=== PATIENT | female | born 1955 | race African-American/Black ===

== ENCOUNTER 2023-02-04 10:09 | Outpatient (AMB) | payer MEDICARE, SELFPAY ==
--- NOTE | 2023-02-04 10:18 | MHC.OFFVIS ---
Intake Vital Signs 02/04/23 10:22 Height 5 ft 3 in Weight 156 lb BMI 27.6 BP 110/62 Blood Pressure Location Lt brachial Position Standing Pulse 71 Pulse Source Pulse Oximeter Pulse Oximetry (%) 97 Oxygen Delivery Method Room Air Intake Visit Reasons: dyspnea Intake Note: pt is here for shortness of breath/uncontrolled asthma, transferring in from [facility] Allergies No Known Allergies Allergy (Verified 02/04/23 10:25) HPI HPI Comments History of Present Illness Details The patient is here for pulmonary evaluation. The patient is a 67 year woman with a known history of asthma. Apparently for the last 2 years her asthma has become significantly worse. She response typically to prednisone. She was referred to ENT for chronic sinusitis and was provided therapy. She did have allergy testing there is well. She was also referred to an clinical program director. Additional blood work was requested for more than a year ago. She felt to have uncontrolled asthma and felt that she could not start allergy shots again since she has uncontrolled symptoms. She does state that she did allergy shots most of her childhood 1 she was very young to about 19 years of age. She did not really see any significant improvement. She would want to do allergy shot this time. Will try to maximize her respiratory therapy. The patient may be a good candidate for biologic therapy. On examination she does have wheezing rhonchi. She has a hard time with her coughing her chest congestion. She has a hard time expectorating. She has evidence of asthmatic bronchitis. Will go ahead and start her on budesonide nebs. She should also using Acapella valve and will provide her 1 with a local [employer] company. [facility] Medical History (Updated 02/04/23 @ 13:04 by Estiven Silvestre MD) Asthma Chronic bronchitis Social History (Updated 02/04/23 @ 10:33 by MARISSA Roman) Patient Tobacco Use Status: Never used Tobacco Review of Systems Const Denies fatigue and Denies fever(s) Eyes Denies exophthalmos ENT Reports nasal congestion, Reports nasal discharge and Reports post nasal drip Card Denies chest pain and Reports dyspnea on exertion Resp Reports chest congestion, Reports cough, Reports dyspnea on exertion and Reports wheezing GI Reports no additional complaints Musc Reports no additional complaints Skin/Breast Denies rash Neuro Reports no additional complaints Endo Denies fatigue Joshua/Lymph Denies easy bruising Aller/Immun Reports wheezing Physical Exam Vital Signs: Last Vital Signs Pulse 71 02/04/23 10:22 BP 110/62 02/04/23 10:22 Pulse Ox 97 02/04/23 10:22 Oxygen Delivery Method Room Air 02/04/23 10:22 BMI result Body Mass Index 27.6 Const General: comfortable HEENT Head: Yes normocephalic Neck Neck: Yes supple Chest Chest palpation & inspection: normal inspection of the chest Resp Effort & Inspection: normal respiratory effort and prolonged expiratory phase Auscultation: rhonchi, wheezes and breath sounds absent Cardio Rate: regular rate Rhythm: regular rhythm Heart sounds: S1 normal heart sound present and S2 normal heart sound present GI Palpation (GI): Soft to palpation Skin General skin exam: no rashes or lesions noted Extrem General: Yes no clubbing, cyanosis or edema Assessment & Plan Assessment & Plan (1) Chronic bronchitis: Code(s): J42 - Unspecified chronic bronchitis (2) Asthma: Code(s): J45.909 - Unspecified asthma, uncomplicated Qualifiers: Asthma severity: severe Asthma persistence: persistent Asthma complication type: uncomplicated Qualified Code(s): J45.50 - Severe persistent asthma, uncomplicated Plan Add budesonide BID Albuterol BID CPT with acapella valve bloodwork/allergy testing PFTs CXR consider biologic therapy F/U 4-8 weeks Orders: Orders Complete Blood Count Auto Diff Today J42 - Unspecified chronic bronchitis, J45.909 - Unspecified asthma, uncomplicated Erythrocyte Sedimentation Rate Today J42 - Unspecified chronic bronchitis, J45.909 - Unspecified asthma, uncomplicated Immunoglobulin E Today J42 - Unspecified chronic bronchitis, J45.909 - Unspecified asthma, uncomplicated Immunoglobulin G Subclasses Today J42 - Unspecified chronic bronchitis, J45.909 - Unspecified asthma, uncomplicated Immunoglobulins,IgG IgA IgM Today J42 - Unspecified chronic bronchitis, J45.909 - Unspecified asthma, uncomplicated PFT pulmonary function test Today J42 - Unspecified chronic bronchitis, J45.909 - Unspecified asthma, uncomplicated XR chest 2V Today J42 - Unspecified chronic bronchitis, J45.909 - Unspecified asthma, uncomplicated Sputum Cult + Gram stain Today J42 - Unspecified chronic bronchitis Coding Level of Care Code New Pt Level 4 (30138) Diagnoses Chronic bronchitis J42 Asthma J45.50 Asthma severity: severe Asthma persistence: persistent Asthma complication type: uncomplicated Time Spent (min) 40
[2023-02-04 10:22] VITALS: BP 110/62; PULSE 71; O2SAT 97; BMI 27.6
== END 2023-02-04 11:02 | disposition home or self-care (01) ==
PROVIDERS: PCP Internal Medicine; Visit Provider Hospitalist
DX: J42 Unspecified chronic bronchitis (principal); J45.50 Severe persistent asthma, uncomplicated
CPT/HCPCS: 99204

== ENCOUNTER → 2023-02-04 10:09 | Outpatient (BNVA) | payer MEDICARE, SELFPAY | PROVIDERS: Visit Provider Hospitalist | DX: J45.50 Severe persistent asthma, uncomplicated (principal); J42 Unspecified chronic bronchitis | CPT/HCPCS: 99202 ==

== ENCOUNTER 2023-02-17 10:13 | Outpatient (REF) | payer MEDICARE, SELFPAY ==
--- NOTE | 2023-02-17 11:19 | PFT_ITS ---
INDICATION: Asthma. SPIROMETRY: FEV1 to FVC 77% with an FEV1 of 2.02 L, which is 128% predicted and FVC of 2.64 L, which is 130% predicted. No significant response to bronchodilators noted. Maximum voluntary ventilation 79% predicted. LUNG VOLUMES: Total lung capacity 94% predicted with an expiratory reserve volume of 25% predicted. DIFFUSION CAPACITY: DLCO 111% predicted. COMPARISONS: None. INTERPRETATION: No obstructive nor restrictive ventilatory defects identified. No significant response to bronchodilators noted. There is a mild decrease in maximum voluntary ventilation secondary to likely deconditioning. Lung volumes are within normal limits except for decrease in the expiratory reserve volume. Diffusion capacity is within normal limits. Clinical correlation warranted. Estiven Silvestre MD MR/MODL / [id number]
== END 2023-02-17 10:14 | disposition home or self-care (01) ==
LOC: HO.RESP 10:13
PROVIDERS: PCP Internal Medicine; Visit Provider Hospitalist
DX: J45.909 Unspecified asthma, uncomplicated (principal); J42 Unspecified chronic bronchitis
CPT/HCPCS: 94010; 94727; 94729

== ENCOUNTER → 2023-02-17 11:19 | Outpatient (BNV) | payer MEDICARE, SELFPAY | PROVIDERS: PCP Internal Medicine; Visit Provider Hospitalist | DX: J45.909 Unspecified asthma, uncomplicated (principal) | CPT/HCPCS: 94060; 94727; 94729 ==

== ENCOUNTER 2023-04-18 10:25 | Outpatient (AMB) | payer MEDICARE, SELFPAY ==
--- NOTE | 2023-04-18 10:31 | MHC.OFFVIS ---
Intake Vital Signs 04/18/23 10:35 Height 5 ft 3 in Weight 154 lb BMI 27.3 BP 120/70 Blood Pressure Location Rt brachial Position Sitting Pulse 62 Pulse Source Pulse Oximeter Pulse Oximetry (%) 99 Oxygen Delivery Method Room Air Intake Visit Reasons: dyspnea Casino Change Attendant Required: No Allergies No Known Allergies Allergy (Verified 04/18/23 10:37) HPI HPI Comments History of Present Illness Details The patient is a 67 year woman with a known history of asthma. Apparently for the last 2 years her asthma has become significantly worse. She response typically to prednisone. She was referred to ENT for chronic sinusitis and was provided therapy. She did have allergy testing there is well. She was also referred to an health care marketing manager. Additional blood work was requested for more than a year ago. She felt to have uncontrolled asthma and felt that she could not start allergy shots again since she has uncontrolled symptoms. She does state that she did allergy shots most of her childhood 1 she was very young to about 19 years of age. She did not really see any significant improvement. She would want to do allergy shot this time. Will try to maximize her respiratory therapy. The patient may be a good candidate for biologic therapy. On examination she does have wheezing rhonchi. She has a hard time with her coughing her chest congestion. She has a hard time expectorating. She has evidence of asthmatic bronchitis. Will go ahead and start her on budesonide nebs. She should also using Acapella valve and will provide her 1 with a local [employer]. 04/18/2023 the patient is here for pulmonary follow-up visit. Overall the patient has been doing well. She did undergo the pulmonary function studies which were very reassuring, with no obstructive nor restrictive ventilatory defects. Her chest x-ray only demonstrated some minimal atelectasis at the base. And the patient also had blood work which was all reassuring. The patient is currently being evaluated for biologic therapy with her health care marketing manager. We did talk about chest physical therapy regarding her chest congestion. Using the Acapella valve for chest PT will be important and mucus clearance. The patient is very sensitive to many medications and she is very concerned about potential side effects. [facility] Medical History (Updated 04/20/23 @ 22:26 by Estiven Silvestre MD) Chronic bronchitis Asthma Social History (Updated 02/04/23 @ 10:33 by MARISSA Roman) Patient Tobacco Use Status: Never used Tobacco Review of Systems Const Denies fatigue and Denies fever(s) Eyes Denies exophthalmos ENT Reports nasal congestion, Reports nasal discharge and Reports post nasal drip Card Denies chest pain and Reports dyspnea on exertion Resp Reports chest congestion, Reports cough, Reports dyspnea on exertion and Reports wheezing GI Reports no additional complaints Musc Reports no additional complaints Skin/Breast Denies rash Neuro Reports no additional complaints Endo Denies fatigue Joshua/Lymph Denies easy bruising Aller/Immun Reports wheezing Physical Exam Vital Signs: Last Vital Signs Pulse 62 04/18/23 10:35 BP 120/70 04/18/23 10:35 Pulse Ox 99 04/18/23 10:35 Oxygen Delivery Method Room Air 04/18/23 10:35 BMI result Body Mass Index 27.3 Const General: comfortable HEENT Head: Yes normocephalic Neck Neck: Yes supple Chest Chest palpation & inspection: normal inspection of the chest Resp Effort & Inspection: normal respiratory effort and prolonged expiratory phase Auscultation: wheezes Cardio Rate: regular rate Rhythm: regular rhythm Heart sounds: S1 normal heart sound present and S2 normal heart sound present GI Palpation (GI): Soft to palpation Skin General skin exam: no rashes or lesions noted Extrem General: Yes no clubbing, cyanosis or edema Assessment & Plan Assessment & Plan (1) Chronic bronchitis: Code(s): J42 - Unspecified chronic bronchitis Qualifiers: Chronic bronchitis type: simple Qualified Code(s): J41.0 - Simple chronic bronchitis (2) Asthma: Code(s): J45.909 - Unspecified asthma, uncomplicated Qualifiers: Asthma complication type: uncomplicated Asthma persistence: persistent Asthma severity: severe Qualified Code(s): J45.50 - Severe persistent asthma, uncomplicated Plan budesonide BID Albuterol BID CPT with acapella valve consider biologic therapy with her health care marketing manager continue singulaor F/U 6 months Coding Level of Care Code Est Pt Level 4 (13858) Diagnoses Simple chronic bronchitis J41.0 Chronic bronchitis type: simple Severe persistent asthma without complication J45.50 Asthma complication type: uncomplicated Asthma persistence: persistent Asthma severity: severe Time Spent (min) 18
[2023-04-18 10:35] VITALS: BP 120/70; PULSE 62; O2SAT 99; BMI 27.3
== END 2023-04-18 11:05 | disposition home or self-care (01) ==
PROVIDERS: PCP Internal Medicine; Visit Provider Hospitalist
DX: J41.0 Simple chronic bronchitis (principal); J45.50 Severe persistent asthma, uncomplicated
CPT/HCPCS: 99214

== ENCOUNTER → 2023-04-18 10:25 | Outpatient (BNVA) | payer MEDICARE, SELFPAY | PROVIDERS: PCP Internal Medicine; Visit Provider Hospitalist | DX: J45.50 Severe persistent asthma, uncomplicated (principal); J41.0 Simple chronic bronchitis | CPT/HCPCS: 99212 ==

== ENCOUNTER 2023-10-15 11:01 | Outpatient (AMB) | payer MEDICARE, SELFPAY ==
[2023-10-15 11:11] VITALS: PULSE 64; O2SAT 98; BMI 26.4
--- NOTE | 2023-10-15 11:11 | A.OFFVIS_ITS ---
Intake Vital Signs 10/15/23 11:11 Height 5 ft 3 in Weight 149 lb BMI 26.4 Pulse 64 Pulse Source Pulse Oximeter Pulse Oximetry (%) 98 Oxygen Delivery Method Room Air Intake Visit Reasons: dyspnea Ross Lift Operator Required: No Allergies No Known Allergies Allergy (Verified 10/15/23 11:12) HPI HPI Comments History of Present Illness Details The patient is a 67 year woman with a known history of asthma. Apparently for the last 2 years her asthma has become significantly worse. She response typically to prednisone. She was referred to ENT for chronic sinusitis and was provided therapy. She did have allergy testing there is well. She was also referred to an ssn/ssbn assistant navigator. Additional blood work was requested for more than a year ago. She felt to have uncontrolled asthma and felt that she could not start allergy shots again since she has uncontrolled symptoms. She does state that she did allergy shots most of her childhood 1 she was very young to about 19 years of age. She did not really see any significant improvement. She would want to do allergy shot this time. Will try to maximize her respiratory therapy. The patient may be a good candidate for biologic therapy. On examination she does have wheezing rhonchi. She has a hard time with her coughing her chest congestion. She has a hard time expectorating. She has evidence of asthmatic bronchitis. Will go ahead and start her on budesonide nebs. She should also using Acapella valve and will provide her 1 with a local [employer]. 04/18/2023 the patient is here for pulmonary follow-up visit. Overall the patient has been doing well. She did undergo the pulmonary function studies which were very reassuring, with no obstructive nor restrictive ventilatory defects. Her chest x-ray only demonstrated some minimal atelectasis at the base. And the patient also had blood work which was all reassuring. The patient is currently being evaluated for biologic therapy with her ssn/ssbn assistant navigator. We did talk about chest physical therapy regarding her chest congestion. Using the Acapella valve for chest PT will be important and mucus clearance. The patient is very sensitive to many medications and she is very concerned about potential side effects. 10/15/2023 the patient is here for a pulm onary follow-up visit. Overall the patient is doing well. Recently she was exposed to a viral syndrome and she became sick with bronchitis. The fortunately part is that she did not need any prednisone although the patient needed a brief course of antibiotics. Her symptoms are now better. She did start Fasenra which has been helping significantly. She has been on the Fasenra now for several months. She is tolerating the injection without any adverse effects. Is been working well and therefore she was able to wean off some of the nebulized therapy. However, after getting the viral syndrome in the bronchitis she has been using her nebulizers more regularly. Her chest x-ray is reassuring at least the last 1 that she had. That was from January 2023. She may have had 1 when she had bronchitis but I do not have access to that 1. At this point will continue with current respiratory regimen the patient will follow-up in the fall. [facility] Medical History (Updated 10/15/23 @ 11:28 by Estiven Silvestre MD) Asthma-COPD overlap syndrome Chronic bronchitis Asthma Social History (Updated 02/04/23 @ 10:33 by Marily Myers Cheo) Patient Tobacco Use Status: Never used Tobacco Review of Systems Const Denies fatigue and Denies fever(s) Eyes Denies exophthalmos ENT Reports nasal congestion, Reports nasal discharge and Reports post nasal drip Card Denies chest pain and Reports dyspnea on exertion Resp Reports chest congestion, Reports cough, Reports dyspnea on exertion and Denies wheezing GI Reports no additional complaints Musc Reports no additional complaints Skin/Breast Denies rash Neuro Reports no additional complaints Endo Denies fatigue Joshua/Lymph Denies easy bruising Aller/Immun Denies wheezing Physical Exam Vital Signs: Last Vital Signs Pulse 64 10/15/23 11:11 Pulse Ox 98 10/15/23 11:11 Oxygen Delivery Method Room Air 10/15/23 11:11 BMI result Body Mass Index 26.4 Const General: comfortable HEENT Head: Yes normocephalic Neck Neck: Yes supple Chest Chest palpation & inspection: normal inspection of the chest Resp Effort & Inspection: normal respiratory effort and No prolonged expiratory phase Auscultation: no wheezes and diminished lung sounds Cardio Rate: regular rate Rhythm: regular rhythm Heart sounds: S1 normal heart sound present and S2 normal heart sound present GI Palpation (GI): Soft to palpation Skin General skin exam: no rashes or lesions noted Extrem General: Yes no clubbing, cyanosis or edema Assessment & Plan Assessment & Plan (1) Chronic bronchitis: Code(s): J42 - Unspecified chronic bronchitis Qualifiers: Chronic bronchitis type: simple Qualified Code(s): J41.0 - Simple chronic bronchitis (2) Asthma: Code(s): J45.909 - Unspecified asthma, uncomplicated Qualifiers: Asthma complication type: uncomplicated Asthma persistence: persistent Asthma severity: severe Qualified Code(s): J45.50 - Severe persistent asthma, uncomplicated (3) Asthma-COPD overlap syndrome: Code(s): J44.89 - Other specified chronic obstructive pulmonary disease Plan budesonide BID via nebulizer Albuterol BID nebulizer CPT with acapella valve continue Fasenra continue singulair F/U 6 months Medications: New budesonide 0.5 mg (2 mL) inhalation BID 30 days 120 mL 11RF J44.89 - Other specified chronic obstructive pulmonary disease Coding Level of Care Code Est Pt Level 4 (28691) Diagnoses Simple chronic bronchitis J41.0 Chronic bronchitis type: simple Severe persistent asthma without complication J45.50 Asthma complication type: uncomplicated Asthma persistence: persistent Asthma severity: severe Asthma-COPD overlap syndrome J44.89 Time Spent (min) 17
== END 2023-10-15 11:37 | disposition home or self-care (01) ==
PROVIDERS: PCP Internal Medicine; Visit Provider Hospitalist
DX: J41.0 Simple chronic bronchitis (principal); J45.50 Severe persistent asthma, uncomplicated
CPT/HCPCS: 99214

== ENCOUNTER → 2023-10-15 11:01 | Outpatient (BNVA) | payer MEDICARE, SELFPAY | PROVIDERS: PCP Internal Medicine; Visit Provider Hospitalist | DX: J45.50 Severe persistent asthma, uncomplicated (principal); J41.0 Simple chronic bronchitis; Z79.899 Other long term (current) drug therapy | CPT/HCPCS: 99212 ==

== ENCOUNTER 2024-06-08 10:20 | Outpatient (AMB) | payer MEDICARE, SELFPAY ==
[2024-06-08 10:29] VITALS: BP 126/62; PULSE 72; O2SAT 98; BMI 26.0
--- NOTE | 2024-06-08 10:29 | A.OFFVIS_ITS ---
Vital Signs 06/08/24 10:29 Height 5 ft 3 in Weight 146 lb 9.718 oz BMI 26.0 BP 126/62 Blood Pressure Location Rt brachial Position Sitting Pulse 72 Pulse Source Pulse Oximeter Pulse Oximetry (%) 98 Intake Visit Reasons: Dyspnea Trucker Hand Required: No Branch Employment Coordinator: Branch Employment Coordinator offered & declined Accompanied by: Self / Same As Patient Allergies No Known Allergies Allergy (Verified 06/08/24 10:34) Medication List - Last Reconciled 06/08/24 by Mari Casas LPN albuterol sulfate 90 mcg/actuation (ProAir HFA) 2 puffs inhalation Q4-6H PRN albuterol sulfate 2.5 mg inhalation TID PRN amlodipine 5 mg PO DAILY budesonide 0.5 mg (2 mL) inhalation BID 30 days citalopram (Celexa) 40 mg PO DAILY diclofenac potassium 50 mg PO BID epinephrine (Auvi-Q) 0.3 mg IM Q4H PRN fluticasone furoate-vilanterol 100-25 mcg/dose (Breo Ellipta) 1 inh inhalation DAILY hyoscyamine sulfate (Levsin) 0.125 mg PO Q6H lorazepam 1 mg PO TID PRN montelukast (Singulair) 10 mg PO BEDTIME multivitamin (Multiple Vitamins tablet) 1 tab PO DAILY nebulizers As directed pregabalin 75 mg PO BID tramadol 50 mg PO Q6H PRN valacyclovir (Valtrex) 500 mg PO DAILY HPI Comments Details: The patient is a 68 year woman with a known history of asthma. Apparently for the last 2 years her asthma has become significantly worse. She response typically to prednisone. She was referred to ENT for chronic sinusitis and was provided therapy. She did have allergy testing there is well. She was also referred to an biochemistry technician. Additional blood work was requested for more than a year ago. She felt to have uncontrolled asthma and felt that she could not start allergy shots again since she has uncontrolled symptoms. She does state that she did allergy shots most of her childhood 1 she was very young to about 19 years of age. She did not really see any significant improvement. She would want to do allergy shot this time. Will try to maximize her respiratory therapy. The patient may be a good candidate for biologic therapy. On examination she does have wheezing rhonchi. She has a hard time with her coughing her chest congestion. She has a hard time expectorating. She has evidence of asthmatic bronchitis. Will go ahead and start her on budesonide nebs. She should also using Acapella valve and will provide her 1 with a local [employer] company. 04/18/2023 the patient is here for pulmonary follow-up visit. Overall the patient has been doing well. She did undergo the pulmonary function studies which were very reassuring, with no obstructive nor restrictive ventilatory defects. Her chest x-ray only demonstrated some minimal atelectasis at the base. And the patient also had blood work which was all reassuring. The patient is currently being evaluated for biologic therapy with her biochemistry technician. We did talk about chest physical therapy regarding her chest congestion. Using the Acapella valve for chest PT will be important and mucus clearance. The patient is very sensitive to many medications and she is very concerned about potential side effects. 10/15/2023 the patient is here for a pulmonary follow-up visit. Overall the patient is doing well. Recently she was exposed to a viral syndrome and she became sick with bronchitis. The fortunately part is that she did not need any prednisone although the patient needed a brief course of antibiotics. Her symptoms are now better. She did start Fasenra which has been helping significantly. She has been on the Fasenra now for several months. She is tolerating the injection without any adverse effects. Is been working well and therefore she was able to wean off some of the nebulized therapy. However, after getting the viral syndrome in the bronchitis she has been using her nebulizers more regularly. Her chest x-ray is reassuring at least the last 1 that she had. That was from January 2023. She may have had 1 when she had bronchitis but I do not have access to that 1. At this point will continue with current respiratory regimen the patient will follow-up in the fall of 2023. 06/08/2024 the patient is here for a pulmonary follow-up visit. Overall she is doing very well. The patient his responded very well to the Fasenra injections. She has not had any significant flare-ups. Although more recently she has had some wheezing specially because of the fall and the winter when her asthma tends to be worse. She previously had budesonide although is not covered anymore with the insurance. Will send her QVAR. She can also use her nebulizer and also the albuterol puffer to use as needed. No imaging studies to review. We again looked at her PFTs which are actually excellent. Was on a copy to her biochemistry technician. At this point the patient will follow-up in a year's time if she develops any worsening respiratory symptoms she will call for an earlier chest. [facility] Medical History (Updated 10/15/23 @ 11:28 by Estiven Silvestre MD) Asthma-COPD overlap syndrome Chronic bronchitis Asthma Social History (Updated 02/04/23 @ 10:33 by Marily Myers PENDING SALE TO [facility]) Patient Tobacco Use Status: Never used Tobacco Review of Systems Const Denies fatigue and Denies fever(s) Eyes Denies exophthalmos ENT Reports nasal congestion, Reports nasal discharge and Reports post nasal drip Card Denies chest pain and Denies dyspnea on exertion Resp Denies chest congestion, Reports cough, Denies dyspnea on exertion and Reports wheezing GI Reports no additional complaints Musc Reports no additional complaints Skin/Breast Denies rash Neuro Reports no additional complaints Endo Denies fatigue Joshua/Lymph Denies easy bruising Aller/Immun Reports wheezing Physical Exam Vital Signs: Last Vital Signs Pulse 72 06/08/24 10:29 BP 126/62 06/08/24 10:29 Pulse Ox 98 06/08/24 10:29 BMI result Body Mass Index 26.0 Const General: comfortable HEENT Head: Yes normocephalic Neck Neck: Yes supple Chest Chest palpation & inspection: normal inspection of the chest Resp Effort & Inspection: normal respiratory effort and No prolonged expiratory phase Auscultation: no wheezes and diminished lung sounds Cardio Rate: regular rate Rhythm: regular rhythm Heart sounds: S1 normal heart sound present and S2 normal heart sound present GI Palpation (GI): Soft to palpation Skin General skin exam: no rashes or lesions noted Extrem General: Yes no clubbing, cyanosis or edema Results Reviewed Results Reviewed: [address] [address] Pulmonary Function Report Signed Patient: Sourav Escoto MR#: [id number] : 1955 Acct:[id number] Age/Sex: 67 / F ADM Date: 02/17/23 Loc: HO.RESP Attending Dr: Estiven Silvestre MD Ordering Physician: Estiven Silvestre MD Date of Service: 02/17/23 Procedure(s): PFT pulmonary function test Accession Number(s): [id number] cc: sEtiven Silvestre MD~ INDICATION: Asthma. SPIROMETRY: FEV1 to FVC 77% with an FEV1 of 2.02 L, which is 128% predicted and FVC of 2.64 L, which is 130% predicted. No significant response to bronchodilators noted. Maximum voluntary ventilation 79% predicted. LUNG VOLUMES: Total lung capacity 94% predicted with an expiratory reserve volume of 25% predicted. DIFFUSION CAPACITY: DLCO 111% predicted. COMPARISONS: None. INTERPRETATION: No obstructive nor restrictive ventilatory defects identified. No significant response to bronchodilators noted. There is a mild decrease in maximum voluntary ventilation secondary to likely deconditioning. Lung volumes are within normal limits except for decrease in the expiratory reserve volume. Diffusion capacity is within normal limits. Clinical correlation warranted. Estiven Silvestre MD MR/MODL / [id number] Dictated By: Estiven Silvestre MD Signed By: <Electronically signed by Estiven Silvestre MD> 02/18/23 1312 DD/ 0810 TD/TT: 02/18/23 1052 Loan Approver: Assessment & Plan Assessment & Plan (1) Chronic bronchitis: Code(s): J42 - Unspecified chronic bronchitis Category: Medical Qualifiers: Chronic bronchitis type: simple Qualified Code(s): J41.0 - Simple chron ic bronchitis (2) Asthma: Code(s): J45.909 - Unspecified asthma, uncomplicated Category: Medical Qualifiers: Asthma complication type: uncomplicated Asthma persistence: persistent Asthma severity: severe Qualified Code(s): J45.50 - Severe persistent asthma, uncomplicated Plan stop budesonide BID via nebulizer start QVAR Albuterol BID nebulizer CPT with acapella valve continue Fasenra continue singulair F/U 12 months Medications: New beclomethasone dipropionate 80 mcg/actuation (Qvar RediHaler) 1 inh inhalation BID 30 days 10.6 grams 11RF Changed From albuterol sulfate 2.5 mg inhalation TID PRN To albuterol sulfate 2.5 mg (3 mL) inhalation BID 30 days PRN 180 mL 11RF shortness of breath or wheezing From albuterol sulfate 90 mcg/actuation (ProAir HFA) 2 puffs inhalation Q4-6H PRN To albuterol sulfate 90 mcg/actuation 2 puffs inhalation Q4-6H PRN 8.5 grams 11RF shortness of breath or wheezing Coding Level of Care Code Est Pt Level 4 (12233) Diagnoses Simple chronic bronchitis J41.0 Chronic bronchitis type: simple Severe persistent asthma without complication J45.50 Asthma complication type: uncomplicated Asthma persistence: persistent Asthma severity: severe Time Spent (min) 16
== END 2024-06-08 10:53 | disposition home or self-care (01) ==
PROVIDERS: PCP Internal Medicine; Visit Provider Hospitalist
DX: J41.0 Simple chronic bronchitis (principal); J45.50 Severe persistent asthma, uncomplicated
CPT/HCPCS: 99214

== ENCOUNTER → 2024-06-08 10:20 | Outpatient (BNVA) | payer MEDICARE, SELFPAY | PROVIDERS: PCP Internal Medicine; Visit Provider Hospitalist | DX: J45.50 Severe persistent asthma, uncomplicated (principal); J41.0 Simple chronic bronchitis | CPT/HCPCS: 99212 ==

== ENCOUNTER 2024-11-10 14:56 | Outpatient (REF) | payer MEDICARE, SELFPAY ==
--- NOTE | 2024-11-10 14:57 | PFT_ITS ---
Spirometry [] Lung Volumes [] Diffusion Capacity [] Methacholine Challenge [] Flow Volume Loops [] MVV [] MIP/MEP(Max inspiratory pressure/Max expiratory pressure) [] 6 Minute Walk Test [] ABG [] Interpretation [] MTDD
[2024-11-10 15:42] VITALS: PULSE 70; O2SAT 99
--- OUTSIDE RECORDS SUMMARY | 2024-11-10 17:47 | XMS_ITS | Clinical Summary ---
Author Organization [facility] [address] [facility] Address [address] [place] [address] Phone Care Team Providers Care Calculus Tutor Name Role Phone Debbie Cisneros MD Primary Care Prov ider Allergies Active Allergy Reactions Criticality Noted Date Comments Morrice Other 04/02/2021 Coconut Other 05/27/2023 Milk Diarrhea 04/02/2021 Diarrhea within minutes of ingesting lactaid products Rash in corners of mouth Other Wheezing,Runny nose 12/14/2010 Seasonal Allergies Peanut Other 10/26/2020 Medications albuterol 2.5 mg /3 mL (0.083 %) nebulizer solution Take 1 Vial by nebulization 4 times daily. use qid as needed 4 Active albuterol HFA (PROAIR HFA ; PROVENTIL HFA ; VENTOLIN HFA) 90 mcg/actuation inhaler Take 2 Puffs by mouth every 6 hours as needed for Cough or Wheezing for up to 30 days. 2 Active multivitamin (MULTI-DAY ORAL) 1 TAB PO QD Active cholecalcifero l, vitamin D3, 25 mcg (1,000 unit) tablet,chewabl e Take by mouth daily. Active benralizumab (Fasenra Pen) 30 mg/mL auto-injector injection Inject into the skin every 30 days. Active budesonide (PULMICORT) 0.5 mg/2 mL nebulizer solution INHALE ONE VIAL 0.5MG/2ML) VIA NEBULIZER TWICE DAILY. 4 Active diclofenac sodium (VOLTAREN XR) 100 mg 24 Hour tablet TAKE 1 TABLET BY MOUTH DAILY 4 Active EPINEPHrine (Auvi-Q) 0.3 mg/0.3 mL injection Inject 1 Device as directed as needed (anaphylaxis). Use as directed 1 Active latanoprost (XALATAN) 0.005 % ophthalmic solution INSTILL ONE DROP INTO BOTH EYES EVERY NIGHT DIRECTED 3 Active LORazepam (ATIVAN) 0.5 mg tablet Take 1 tablet by mouth every 6 hours as needed for Anxiety. 1 Active miconazole (MICOTIN) 2 % powder Apply to affected areas liberally or 4 times daily 1 Active nystatin-triam cinolone (MYCOLOG II) cream APPLY A SMALL AMOUNT TO AFFECTED AREA TWICE A DAY 9 Active valACYclovir (VALTREX) 500 mg tablet Take 2 tablets (1,000 mg total) by mouth 1 (one) time each day. 4 Active amLODIPine (NORVASC) 5 mg tablet Take 1 tablet (5 mg total) by mouth 1 (one) time each day. 90 tablet 1 5 Active citalopram (CeleXA) 40 mg tablet Take 1 tablet (40 mg total) by mouth 1 (one) time each day. 90 tablet 1 5 Active pregabalin (LYRICA) 75 mg capsule Take 1 capsule (75 mg total) by mouth 2 (two) times a day. Max Daily Amount: 150 mg 180 each 1 5 025 Active montelukast (SINGULAIR) 10 mg tablet Take 1 tablet (10 mg total) by mouth at bedtime. 90 tablet 1 5 Active traMADoL (ULTRAM) 50 mg tablet Take 1 tablet (50 mg total) by mouth 2 (two) times a day. Max Daily Amount: 100 mg 56 tablet 5 Active pregabalin (LYRICA) 75 mg capsule Take 1 Capsule by mouth 2 times daily. 4 025 Discontin ued(Reord er) montelukast (SINGULAIR) 10 mg tablet Take 1 tablet (10 mg total) by mouth at bedtime. 90 tablet 1 5 025 Discontin ued(Reord er) traMADoL (ULTRAM) 50 mg tablet Take 1 tablet (50 mg total) by mouth 2 (two) times a day. Max Daily Amount: 100 mg 56 tablet 5 025 Discontin ued(Reord er) Active Problems Problem Noted Date Diagnosed Date Sacroiliac joint pain 08/28/2023 Overview (05/27/2024): Last Assessment & Plan: Ms. Escoto has persistent right SI joint pain that extends to her groin and anterior thigh. She is currently in physical therapy which does help with though she feels sore immediately afterwards. She notes that there using a roller over the joint does help at therapy. She has a difficult time sleeping on her sides at night particularly on the right and has recurrent pain whenever she is pulled forward in a jerking motion by her dog while walking. She is currently taking diclofenac SR 100 mg every morning which helps but seems to wear off by evening. On exam, she is acutely tender over the right SI joint, mildly so over the left. Seated SLR is positive on the right at 90 degrees and crossed from the left and 90 degrees provoking pain at the right SI joint, not in the lumbar spine. Strength is 5/5, sensation light touch intact, gait is steady. We discussed treatment options for chronic sacroiliitis. She does not wish to have any further surgery if possible and would not want to consider an SI fuse which I did demonstrate on the spine model. She is doing well with physical therapy and a asked that they teach her home exercise program including how to bowl on a roller and she will restart her swimming next week. She can continue the diclofenac in the mornings but may add the 50 mg tablet in the evening. I have also given her prescription for an SI belt. Glaucoma suspect 05/27/2023 Overview (05/27/2024): [facility] eye care. Dr. Alonso. On latanoprost Stage III macular hole following with Dr. Howard annual. Nuclear sclerosis OU. 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 Dry eye syndrome OU Assessment & Plan (10/20/2024 12:14 PM EDT): Abnormal EKG 08/14/2022 Overview (05/27/2024): Last Assessment & Plan: T wave inversion is slightly more prominent in precordial leads compared to previous EKG. This could be nonspecific. But we will arrange ischemia work-up. Shortness of breath 08/14/2022 Overview (05/27/2024): Last Assessment & Plan: Probably caused by her persistent asthma. She does not have a typical risk factor for coronary artery disease beside of age. However, her EKG showed more profound T wave inversion. Would like to arrange echocardiogram and stress test. We will check BNP and repeat lipid panel. 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 Escoto is here for second postop visit since a right L3-4 MIS discectomy on 12/11/2023. She has had resolution of the numbness and reports now very rare tingling or pain from preop. She does have persistent symptoms from right sacroiliitis which will be discussed separately. She has been hesitant to twist, turn or bend since surgery but doing these maneuvers does not provoke pain in the lumbar region. On exam, her incision is well-healed without tenderness, erythema or swelling. Strength is full, sensation light touch intact, gait is steady. She had questions regarding the stability of her spine given the surgery adjacent to her prior fusion. No further surgery is considered at this time. I encouraged good body mechanics and continuing a home exercise program. She is also scheduled to restart swimming next week which I think will help in the long run. Assessment & Plan (10/20/2024 12:14 PM EDT): Chronic nonintractable headache 01/06/2019 Recurrent major depressive d isorder, in partial remission ([facility] V24) 12/17/2018 Assessment & Plan (10/20/2024 12:14 PM EDT): Orders: CBC and differential; Future Comprehensive metabolic panel; Future Myofascial pain syndrome, cervical 09/21/2018 Brachial neuritis or radiculitis 08/20/2018 Sprain of thoracic region 08/20/2018 Cervical disc disease with myelopathy 06/25/2018 Assessment & Plan (10/20/2024 12:14 PM EDT): Dysplastic nevus 03/23/2014 Overview (05/27/2024): Dysplastic nevus 03/03 right foot (mild - moderate atypia) Lactose intolerance 08/16/2013 Overview (05/27/2024): Reported 07/2013 Per patient Perennial allergic rhinitis 11/26/2010 Hypertension 11/22/2008 Assessment & Plan (10/20/2024 12:14 PM EDT): Angioedema 08/03/2008 Overview (05/27/2024): Cold induced, 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, thoracic region 05/03/2008 Overview (05/27/2024): MRI 04/27 with mild disc bulg T9-10 Fibrocystic breast 02/07/2008 Overview (05/27/2024): Neg mammogram 01/26/08 Undiagnosed cardiac murmurs 11/18/2006 Overview (05/27/2024): Normal echo 11/04/06, EF60-65%, Trace MR Generalized osteoarthrosis of hand 10/01/2006 Overview (05/27/2024): cervical spine, hands IMO update Disorder of bone and cartilage 10/01/2006 Overview (05/27/2024): IMO update Hematuria 08/12/2006 Overview (05/27/2024): IMO update Asthma 02/21/2006 Overview (05/27/2024): seasonal spring/fall, cold triggers Assessment & Plan (10/20/2024 12:14 PM EDT): Vitamin D deficiency 02/21/2006 Assessment & Plan (10/20/2024 12:14 PM EDT): Orders: Vitamin D 25 hydroxy; Future Headache 10/31/2005 Overview (05/27/2024): MRI with cerebral white matter hyperintensities, referred to Neuro, Dr Gillespie, for eval. Normal echo 03/23/08 Nl MRI cervical and thoracic spine 04/27 Encounters Date Type Department Care Team Description 10/20/2024 11:15 AM EDT Office Visit Adult Medicine [address] [address] Ashlee Hooper PA Medicare annual wellness visit, subsequent (Primary Dx); Primary hypertension; Cervical disc disease with myelopathy; Lumbar disc disease with radiculopathy; Moderate persistent asthma without complication; Vitamin D deficiency; Recurrent major depressive disorder, in partial remission (CMS/HCC V24); Herpes zoster without complication; Glaucoma suspect, unspecified laterality; Screening for ischemic heart disease; Overweight from Last 3 Months Immunizations Name Administration Dates Next Due Hepatitis A Pediatric (Havri x; Vaqta) 12mo to less than 19yo 05/09/1997 Hepatitis B (Hyvgnyv-U-Qtasc , Recombivax HB-Adult) 19yo and older 05/02/1997,04/04/1997 Influenza Quadravalent, MDCK , 0.5ml, preservative free (Flucelvax) 6mo and older 04/12/2020 Influenza Quadravalent, MDCK , 0.5ml, with preservative (Flucelvax) 6mo and older 04/30/2017 Influenza trivalent, 0.5mL ( Fluad) 65yo and older 03/30/2024 Influenza trivalent, 0.5mL, preservative free (Fluarix; FluLaval; Fluzone) ages 6mo and older (Afluria) 3 years and older 07/07/2019,05/20/2018,05/20/2016,05/18,03/30/2012,06/06/2010,04/19/2008 ,06/04/1997 Influenza trivalent, with pr eservative (Fluzone; Afluria) 6mo and older 06/20/2021 Meningococcal Polysaccharide 04/25/1997 PPD Test 03/04/2016, 5,02/16/2014,03/01,03/04/2012,01/22/2010,04/04/2009 ,01/06/2008,01/25/2002,03/04/2001,02/18 Pneumococcal conjugate 20 va lent (Prevnar 20, PCV 20) 2mo and older 05/27/2023 Pneumococcal polysaccharide 23 valent (Pneumovax 23) 2yo and older 06/07/2015 Td Tetanus diptheria (Tdvax) 7yo and older 07/22/2003,04/04/1997 Tdap Tetanus diptheria acell ular pertussis (Boostrix; Adacel) 7yo and older 12/19/2017,01/06/2008 Zoster recombinant (Shingrix ) 19yo and older 01/18/2022 Surgical History Surgery Date Site/Laterality Comments COLONOSCOPY 2004 PROCEDURE: HISTORICAL COLONOSCOPY; COMMENT: blood stool, negative, Dr Ragland, 04/07/03 Dr Jean MOLE REMOVAL PROCEDURE: HISTORICAL MOLE (REMOVAL OF) BACK SURGERY 07/06/2019 N/A PROCEDURE: HISTORICAL BACK SURGERY; COMMENT: L4-5 decompression, L4-S1 fusion with segmental pedicle screw fixation, Dr. Horowitz COLONOSCOPY 04/2023 PROCEDURE: HISTORICAL COLONOSCOPY; COMMENT: colitis BACK SURGERY 12/11/2023 PROCEDURE: HISTORICAL BACK SURGERY; COMMENT: right L3-4 MIS discectomy, Dr. Horowitz Medical History Medical History Date Comments Allergic rhinitis, cause unspecified 10/01/2006 DX:Allergic rhinitis, cause unspecified Generalized osteoarthrosis, involving hand 10/01/2006 DX:Generalized osteoarthrosi s, involving hand; COMMENT: cervical spine, hands Hypertension 11/22/2008 DX:Hypertension Family history of cardiovasc ular disease DX:Family history of cardiov ascular disease Glaucoma suspect 05/27/2023 DX:Glaucoma marcelina pect; COMMENT: [facility] eye care. Dr. Alonso. On latanoprost Stage III macular hole following with Dr. Howard annual. Nuclear sclerosis OU. 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 Dry eye syndrome OU Osteopenia DX:Osteopenia History of cold urticaria DX:His tory of cold urticaria Mild intermittent asthma, uncomplicated DX:Mild intermittent asthma, uncomplicated Hx of migraines DX:Hx of migrain es History of colitis 04/2023 DX:History of colitis Family History Medical History Relation Name Comments Coronary artery disease Father Other cancer Maternal Grandmother bladder cancer Coronary artery disease Mother Diabetes Mother Htn, glaucoma, cataract, peripheral vascular disease,myxoma Other: multiple myeloma Sister 1 Relation Name Status Comments Brother 1 Alive htn Brother 2 Alive fatty liver, Father (Age 78) alzheimer' s,htn, Dm, [place], bypass Maternal Grandmother Mother Alive cabg, Sister 1 Sister 2 (Age 59) multiple m yeloma Social History Tobacco Use Types Packs/Day Years Used Date Smoking Tobacco: Never Smokeless Tobacco: Never Tobacco Cessation:Counseling Given: No Alcohol Use Standard Drinks/Week Comments Not Currently 0 (1 standard drink = 0.6 oz pur e alcohol) Housing Instability Answer Date Recorde d Are you worried that in the next 2 months you may not have stable housing? No 10/18/2024 Food Access & Nutrition Answer Date Rec orded Do you have access to a vari ety of food including fruits and vegetables? Yes 10/18/2024 Access to Healthcare Answer Date Record ed Within the last 3 months, ho w many times did you visit the emergency department for your medical care? 0 10/18/2024 Health Literacy Answer Date Recorded How often do you need to hav e someone help you when you read instructions, pamphlets, or other written material from your doctor or pharmacy? Rarely 10/18/2024 Caregiver: How often do you need to have someone help you when you read instructions, pamphlets, or other written material from your doctor or pharmacy? Not on file 10/18/2024 Financial Risk Answer Date Recorded How hard is it for you to pa y for the very basics like food, housing, medical care, and air conditioning / heating? Not very hard 10/18/2024 Transportation Answer Date Recorded Has the lack of transportati on kept you from meetings, work, or from getting things needed for daily living? No 10/18/2024 Has the lack of transportati on kept you from medical appointments or from getting medications? Not on file 10/18/2024 Social Isolation Answer Date Recorded How often do you feel lonely or isolated from th ose around you? Never 10/18/2024 Food Risk Answer Date Recorded Within the past 12 months we worried whether our food would run out before we got money to buy more. Never true 10/18/2024 Within the past 12 months th e food we bought just didn't last and we didn't have money to get more. Never true 10/18/2024 Dependent Care Answer Date Recorded Do you need help finding or paying for care for your loved ones. For example, director of child welfare services or elderly care for an older adult? No 10/18/2024 Education Answer Date Recorded Do you think completing more education or training, like finishing a GED, going to college, or learning a trade, would be helpful for you? N/A 10/18/2024 Employment and Income Answer Date Recor ded During the last four weeks, have you been actively looking for work? No 10/18/2024 Living Situation Answer Date Recorded What is your living situation? 0 10/18/2024 Comments No Sex and Gender Information Value Date Recorded Sex Assigned at Female 11/15/2022 12:07 PM EDT Legal Sex Female 10:17 PM EST Gender Identity Female 11/15/2022 12:07 PM EDT Sexual Orientation Lesbian or Whitaker 11/15/2022 12 :07 PM EDT Obstetrics History Last Filed Vital Signs Vital Sign Reading Time Taken Comments Blood Pressure 112/58 10/20/2024 11:24 AM EDT Pulse 61 10/20/2024 11:24 AM EDT Temperature 36.7 ??C (98 ??F) 10/20/2024 11:24 AM EDT Respiratory Rate - - Oxygen Saturation - - Inhaled Oxygen Concentration - - Weight 64.4 kg (142 lb) 10/20/2024 11:24 AM EDT Height 160 cm (5' 3 ) 10/20/2024 11:24 AM EDT Body Mass Index 25.15 10/20/2024 11:24 AM EDT Plan of Treatment Upcoming Encounters Date Type Department Care Team (Late st Contact Info) Description 04/21/2025 9:30 AM EDT Office Visit Adult Medicine - [facility] [address] [place] [phone] Debbie Cisneros MD [address] [place] [address] Health Maintenance Due Date Last Done Comments Breast Cancer Screening 1955 Hepatitis B Vaccines (3 of 3 - 19+ 3-dose series) 10/02/1997 05/02/1997, 04/04/1997 Zoster Vaccines (2 of 2) 03/15/2022 01/18/2022 Falls Risk Assessment 06/29/2022 COVID-19 Vaccine (9 - Moderna risk ) 10/22/2024 04/23/2024, 05/09/2023, 11/07/2022, Additional history exists Social Influencers of Health Screening 10/18/2025 10/18/2024 Depression Screening 10/20/2025 10/20/2024 Hypertension/CHF/CAD Annual BMP Blood Test 10/20/2025 10/20/2024, 02/18/2022 Medicare Annual Wellness Visit 10/20/2025 10/20/2024 DTaP,Tdap,and Td Vaccines (5 - Td or Tdap) 12/20/2027 12/19/2017, 01/06/2008, 07/22/2003, Additional history exists Cholesterol Screening (Lipid Panel) 10/20/2029 10/20/2024, 02/18/2022 Colorectal Cancer Screening: Colonoscopy 03/18/2033 03/18/2023 Osteoporosis Screening (Bone Density Screening) 04/26/2034 04/26/2024, 04/26/2024 Meningococcal ACWY Vaccine Aged Out 04/25/1997 N o longer eligible based on patient's age to complete this topic Hepatitis A Vaccines Aged Out 05/09/1997 No long er eligible based on patient's age to complete this topic Hepatitis C Screening Completed 06/07/2015 Pneumococcal Vaccine: 50+ Years Completed 05/27/2023, 05/08/2022, 06/07/2015 Influenza Vaccine Completed 03/30/2024, , 04/12/2022, Additional history exists RSV Immunization Adult Patients Completed 04/23/2024 HIB Vaccines Aged Out No longer eligi ble based on patient's age to complete this topic HPV Vaccines Aged Out No longer eligi ble based on patient's age to complete this topic IPV Vaccines Aged Out No longer eligi ble based on patient's age to complete this topic MMR Vaccines Aged Out No longer eligi ble based on patient's age to complete this topic Meningococcal B Vaccine Aged Out No l onger eligible based on patient's age to complete this topic RSV Immunization Patients Under 20 months Aged Out No longer eligible based on patient's age to complete this topic Varicella Vaccines Aged Out No longer eligible based on patient's age to complete this topic Procedures Procedure Name Priority Date/Time Associated Diagnosis Comments ACTIVATED PARTIAL THROMBOPLASTIN TIME Routine 10/29/2024 1:39 PM EDT Bleeding nose PROTHROMBIN TIME WITH INR Routine 10/29/2024 1:39 PM EDT Bleeding nose CBC WITH AUTO DIFFERENTIAL Routine 10/20/2024 12:15 PM EDT Recurrent major depressive disorder, in partial remission ([facility]/HCC V24) VITAMIN D 25 HYDROXY Routine 10/20/2024 12:15 PM EDT Vitamin D deficiency LIPID PANEL WITH REFLEX TO DIRECT LDL Routine 10/20/2024 12:15 PM EDT Screening for ischemic heart disease COMPREHENSIVE METABOLIC PANEL Routine 10/20/2024 12:15 PM EDT Recurrent major depressive disorder, in partial remission (CMS/HCC V24) CBC AND DIFFERENTIAL Routine 10/20/2024 12:15 PM EDT Recurrent major depressive disorder, in partial remission ([facility]/HCC V24) DXA BONE DENSITY STUDY 1+ SITS AXIAL SKEL Routine 04/26/2024 2:11 PM EDT Age-related osteoporosis without current pathological fracture COLONOSCOPY Routine 03/18/2023 HEPATITIS C SCREENING Routine 06/07/2015 from Last 3 Months or Most Recently Relevant to Health Maintenance Results * Activated partial thromboplastin time (10/29/2024 1:39 PM EDT) aPTT 29.0 24.1 - 39.3 sec LAB COAGULATION METHOD 10/29/2024 3:59 PM EDT [facility] Blood Venous blood specimen / Unknown Venipuncture / Unknown 10/29/2024 1:39 PM EDT 10/29/2024 1:39 PM EDT Ashlee LEYVA LAB BLOOD ORDERABLES Final Result Performing Organization Address City/[facility]/ZIP Co de Phone Number [facility] [address] [place] [address], [place] [phone] * Prothrombin time with INR (10/29/2024 1:39 PM EDT) [facility] Protime 11.6 10.6 - 13.9 sec LAB COAGULATION METHOD 10/29/2024 3:59 PM EDT [facility] INR 0.9 LAB COAGULATION METHOD 10/29/2024 3:59 PM EDT [facility] Blood Venous blood specimen / Unknown Venipuncture / Unknown 10/29/2024 1:39 PM EDT 10/29/2024 1:39 PM EDT Ashlee LEYVA LAB BLOOD ORDERABLES Final Result Performing Organization Address City/[facility]/ZIP Co de Phone Number [facility] [address] [place] [address], [place] [phone] * Lipid panel with reflex to direct LDL (10/20/2024 12:15 PM EDT) Cholesterol 165 0 - 200 mg/dL LAB CHEMISTRY METHOD 10/20/2024 8:50 PM EDT [facility] Triglycerides 66 0 - 150 mg/dL LAB CHEMISTRY METHOD 10/20/2024 8:50 PM EDT [facility] HDL 75 >=40 mg/dL LAB CHEMISTRY METHOD 10/20/2024 8:50 PM EDT [facility] LDL Calculated 77 0 - 100 mg/dL LAB CHEMISTRY METHOD 10/20/2024 8:50 PM EDT [facility] VLDL Cholesterol Nima 13.2 mg/dL LAB CHEMISTRY METHOD 10/20/2024 8:50 PM EDT [facility] Non HDL Chol. (LDL+VLDL) 90 <145 mg/dL LAB CHEMISTRY METHOD 10/20/2024 8:50 PM EDT [facility] Chol/HDL Ratio 2.2 0.0 - 4.4 LAB CHEMISTRY METHOD 10/20/2024 8:50 PM EDT [facility] Blood Venous blood specimen / Unknown Venipuncture / Unknown 10/20/2024 12:15 PM EDT 10/20/2024 12:15 PM EDT Ashlee LEYVA LAB BLOOD ORDERABLES Final Result [facility] [address] [place] [address], * (ABNORMAL) CBC auto differential (10/20/2024 12:15 PM EDT) Pathologist [facility] WBC 3.9(L) 4.8 - 10.8 K/[facility] LAB HEMETOLOGY METHOD 10/20/2024 2:12 PM EDT [facility] RBC 4.20 3.80 - 4.80 M/mcL LAB HEMETOLOGY METHOD 10/20/2024 2:12 PM [facility] Hemoglobin 13.2 11.5 - 16.0 g/dL LAB HEMETOLOGY METHOD 10/20/2024 2:12 PM [facility] Hematocrit 41.0 35.0 - 47.0 % LAB HEMETOLOGY METHOD 10/20/2024 2:12 PM [facility] MCV 98.6(H) 79.0 - 98.0 FL LAB HEMETOLOGY METHOD 10/20/2024 2:12 PM [facility] MCH 31.7 27.0 - 32.0 pcg LAB HEMETOLOGY METHOD 10/20/2024 2:12 PM [facility] MCHC 32.2 32.0 - 37.0 g/dL LAB HEMETOLOGY METHOD 10/20/2024 2:12 PM [facility] RDW 13.0 11.0 - 15.0 % LAB HEMETOLOGY METHOD 10/20/2024 2:12 PM [facility] Platelets 316 130 - 400 K/mcL LAB HEMETOLOGY METHOD 10/20/2024 2:12 PM [facility] MPV 9.9 7.0 - 11.0 FL LAB HEMETOLOGY METHOD 10/20/2024 2:12 PM [facility] NRBC 0.0 <1.0 % LAB HEMETOLOGY METHOD 10/20/2024 2:12 PM [facility] NRBC Absolute 0.00 <0.10 K/mcL LAB HEMETOLOGY METHOD 10/20/2024 2:12 PM [facility] Neutrophils Relative 57.6 % LAB HEMETOLOGY METHOD 10/20/2024 2:12 PM [facility] Lymphocytes Relative 32.8 % LAB HEMETOLOGY METHOD 10/20/2024 2:12 PM [facility] Monocytes Relative 9.0 % LAB HEMETOLOGY METHOD 10/20/2024 2:12 PM EDT [facility] Eosinophils Relative 0.0 % LAB HEMETOLOGY METHOD 10/20/2024 2:12 PM EDT [facility] Basophils Relative 0.3 % LAB HEMETOLOGY METHOD 10/20/2024 2:12 PM EDT [facility] Immature Granulocytes Relative 0.3 % LAB HEMETOLOGY METHOD 10/20/2024 2:12 PM EDT [facility] Neutrophils Absolute 2.25 1.50 - 7.00 K/mcL LAB HEMETOLOGY METHOD 10/20/2024 2:12 PM EDT [facility] Lymphocytes Absolute 1.28 1.00 - 5.00 K/mcL LAB HEMETOLOGY METHOD 10/20/2024 2:12 PM EDT [facility] Monocytes Absolute 0.35 0.20 - 1.00 K/mcL LAB HEMETOLOGY METHOD 10/20/2024 2:12 PM EDT [facility] Eosinophils Absolute 0.00 0.00 - 0.50 K/mcL LAB HEMETOLOGY METHOD 10/20/2024 2:12 PM EDT [facility] Basophils Absolute 0.01 0.00 - 0.20 K/mcL LAB HEMETOLOGY METHOD 10/20/2024 2:12 PM EDT [facility] Immature Granulocytes Absolute 0.01 0.00 - 0.03 K/mcL LAB HEMETOLOGY METHOD 10/20/2024 2:12 PM EDT [facility] Blood Venous blood specimen / Unknown Venipuncture / Unknown 10/20/2024 12:15 PM EDT 10/20/2024 12:15 PM EDT us Ashlee LEYVA LAB BLOOD ORDERABLES Final Result [facility] [facility] [address] [place] [address], [place] [phone] * Vitamin D 25 hydroxy (10/20/2024 12:15 PM EDT) [facility] Vit D, 25-Hydroxy 58.1 30.0 - 80.0 ng/mL LAB CHEMISTRY METHOD 10/20/2024 9:53 PM EDT [facility] Blood Venous blood specimen / Unknown Venipuncture / Unknown 10/20/2024 12:15 PM EDT 10/20/2024 12:15 PM EDT us Ashlee LEYVA LAB BLOOD ORDERABLES Final Result [facility] [address] [place] [address], [place] [phone] * Comprehensive metabolic panel (10/20/2024 12:15 PM EDT) [facility] Sodium 143 133 - 145 mmol/L LAB CHEMISTRY METHOD 10/20/2024 8:50 PM EDT [facility] Potassium 4.3 3.5 - 5.5 mmol/L LAB CHEMISTRY METHOD 10/20/2024 8:50 PM [facility] Chloride 108 96 - 110 mmol/L LAB CHEMISTRY METHOD 10/20/2024 8:50 PM [facility] CO2 31 21 - 32 mmol/L LAB CHEMISTRY METHOD 10/20/2024 8:50 PM [facility] Anion Gap 4 3 - 11 LAB CHEMISTRY METHOD 10/20/2024 8:50 PM [facility] Glucose 79 70 - 100 mg/dL LAB CHEMISTRY METHOD 10/20/2024 8:50 PM [facility] BUN 9 5 - 25 mg/dL LAB CHEMISTRY METHOD 10/20/2024 8:50 PM [facility] Creatinine 0.80 0.50 - 1.10 mg/dL LAB CHEMISTRY METHOD 10/20/2024 8:50 PM EDT [facility] eGFR 81 >=60 mL/min/1. 73m2 LAB CHEMISTRY METHOD 10/20/2024 8:50 PM T [facility] Comment:Calculation based on the??Chronic Kidney Disease Epidemiology Collaboration (CKD-EPI) equation refit??without adjustment for race. BUN/Creatinine Ratio 11.3 LAB CHEMISTRY METHOD 10/20/2024 8:50 PM EDT [facility] Calcium 9.2 8.5 - 10.5 mg/dL LAB CHEMISTRY METHOD 10/20/2024 8:50 PM [facility] AST (SGOT) 26 10 - 42 unit/L LAB CHEMISTRY METHOD 10/20/2024 8:50 PM [facility] ALT (SGPT) 31 10 - 60 unit/L LAB CHEMISTRY METHOD 10/20/2024 8:50 PM [facility] Alkaline Phosphatase 107 42 - 121 unit/L LAB CHEMISTRY METHOD 10/20/2024 8:50 PM [facility] Total Protein 7.1 6.0 - 8.0 g/dL LAB CHEMISTRY METHOD 10/20/2024 8:50 PM [facility] Albumin 4.0 3.2 - 5.0 g/dL LAB CHEMISTRY METHOD 10/20/2024 8:50 PM [facility] Total Bilirubin 0.3 0.0 - 1.4 mg/dL LAB CHEMISTRY METHOD 10/20/2024 8:50 PM [facility] Blood Venous blood specimen / Unknown Venipuncture / Unknown 10/20/2024 12:15 PM EDT 10/20/2024 12:15 PM EDT us Ashlee LEYVA LAB BLOOD ORDERABLES Final Result [facility] [address] [place] [address], [place] [phone] * DXA BONE DENSITY STUDY 1+ JI AXIAL SKEL (04/26/2024 2:11 PM EDT) Anatomical Region Laterality Modality Bone Densitometr y 12/23/2023 11:3 7 AM EDT Narrative 04/26/2024 5:34 PM EDT BONE DENSITY SCAN (DEXA): FINDINGS: Lumbar Spine L1-L3, L4 excluded due to spinal fusion hardware T-score is -1.2. ?? (SD relative to 20-29 y/o adult) Z-score is 0.6. ??(SD relative to age matched peers) This is considered osteopenia by WHO criteria. Left Hip T-score is -2.3. Z-score is -0.7. This is considered osteopenia by WHO criteria. Left Forearm T-score is -0.4. Z-score is 1.5. This is considered normal by WHO criteria. Comparison exam(s): 08/24/2015 for the lumbar spine and left hip, no prior left forearm study. 8.6% loss of lumbar spine bone mineral density which is statistically significant at the 95% confidence level. No statistically significant change in left hip bone mineral density.. IMPRESSION: IMPRESSION: ?? Osteopenia by WHO criteria. The [facility] Department of Internal Medicine recommends using National Osteoporosis Foundation (NOF) guidelines in treatment decisions related to osteoporosis. NOF guidelines suggest considering treatment for postmenopausal women and men aged 50 or older presenting with the following: History of hip or vertebral fracture. T-score = -2.5 (DXA) at the femoral neck, total hip, or spine, after appropriate evaluation to exclude secondary causes. Low bone mass (T-score between -1.0 and -2.5 at the femoral neck or spine) AND a 10-year probability of a hip fracture = 3% OR a 10-year probability of a major osteoporosis-related fracture = 20% based on the [place]-adapted WHO algorithm Please note that all treatment decisions require clinical judgment and consideration of individual patient factors, including patient preferences, co-morbidities, previous drug use, risk factors not captured in the FRAX model (e.g., frailty, falls, vitamin D deficiency, increased bone turnover, interval significant decline in bone density) and possible under- or over-estimation of fracture risk by FRAX. Optional alternative screening schedule based on john Herman., [facility] August 08, 2011 for patients with osteopenia (based on hip BMD T-score) is as follows: * ??advanced osteopenia (T scores -2.00 to -2.49), BMD testing every year * ??moderate osteopenia (T scores -1.50 to -1.99), BMD testing every 5 years mild osteopenia or normal BMD (T scores -1.50 and higher), BMD testing every 15 years Procedure Note Darlene George MD - 05/18/2024 BONE DENSITY SCAN (DEXA): FINDINGS: Lumbar Spine L1-L3, L4 excluded due to spinal fusion hardware T-score is -1.2. (SD relative to 20-29 y/o adult) Z-score is 0.6. (SD relative to age matched peers) This is considered osteopenia by WHO criteria. Left Hip T-score is -2.3. Z-score is -0.7. This is considered osteopenia by WHO criteria. Left Forearm T-score is -0.4. Z-score is 1.5. This is considered normal by WHO criteria. Comparison exam(s): 08/24/2015 for the lumbar spine and left hip, no priorleft forearm study. 8.6% loss of lumbar spine bone mineral density which is statisticallysignificant at the 95% confidence level. No statistically significant change in left hip bonemineral density.. IMPRESSION: IMPRESSION: Osteopenia by WHO criteria. The [facility] Department of Internal Medicine recommendsusing National Osteoporosis Foundation (NOF) guidelines in treatment decisions related toosteoporosis. NOF guidelines suggest considering treatment for postmenopausal women and menaged 50 or older presenting with the following: History of hip or vertebral fracture. T-score = -2.5 (DXA) at the femoral neck, total hip, or spine, afterappropriate evaluation to exclude secondary causes. Low bone mass (T-score between -1.0 and -2.5 at the femoral neck or spine)AND a 10-year probability of a hip fracture = 3% OR a 10-year probability of a majorosteoporosis-related fracture = 20% based on the [place]-adapted WHO algorithm Please note that all treatment decisions require clinical judgment andconsideration of individual patient factors, including patient preferences, co- morbidities,previous drug use, risk factors not captured in the FRAX model (e.g., frailty, falls, vitaminD deficiency, increased bone turnover, interval significant decline in bone density) andpossible under- or over-estimation of fracture risk by FRAX. Optional alternative screening schedule based on john Herman., NEJMJanuary 2011 for patients with osteopenia (based on hip BMD T-score) is as follows: * advanced osteopenia (T scores -2.00 to -2.49), BMD testing every year * moderate osteopenia (T scores -1.50 to -1.99), BMD testing every 5years mild osteopenia or normal BMD (T scores -1.50 and higher), BMD testingevery 15 years Debbie Cisneros MD IMG DXA PROCEDURES Final Result * Colonoscopy (03/18/2023) [facility] Colonoscopy No Interpretation, Abstraction Anatomical Region Laterality Modality Other Historical Provider HEALTH MAINTENANCE Final Result * Hepatitis C Screening (06/07/2015) [facility] Hepatitis C Screening Abstracted Historical Provider HEALTH MAINTENANCE Final Result from Last 3 Months or Most Recently Relevant to Health Maintenance Insurance [employer] MEDICARE Advance Directives Documents on File Type Date Recorded Patient Civil Technician Expl anation Health Care Decision (hx) 07/07/2019 AD OZUNA DIRECTIVE Health Care Decision (hx) 07/07/2019 AD OZUNA DIRECTIVE Health Care Decision (hx) 07/07/2019 AD OZUNA DIRECTIVE Health Care Decision (hx) 07/07/2019 AD OZUNA DIRECTIVE Health Care Decision (hx) 07/07/2019 AD OZUNA DIRECTIVE Health Care Decision (hx) 07/07/2019 AD OZUNA DIRECTIVE Health Care Decision (hx) 07/07/2019 AD OZNUA DIRECTIVE Health Care Decision (hx) 07/07/2019 AD OZUNA DIRECTIVE Health Care Decision (hx) 07/07/2019 AD OZUNA DIRECTIVE Health Care Decision (hx) 07/07/2019 AD OZUNA DIRECTIVE Health Care Decision (hx) 07/07/2019 AD OZUNA DIRECTIVE Health Care Decision (hx) 07/07/2019 AD OZUNA DIRECTIVE Health Care Decision (hx) 07/07/2019 AD OZUNA DIRECTIVE Health Care Decision (hx) 07/07/2019 AD OZUNA DIRECTIVE Health Care Decision (hx) 07/07/2019 AD OZUNA DIRECTIVE Health Care Decision (hx) 07/07/2019 AD OZUNA DIRECTIVE Health Care Decision (hx) 07/07/2019 AD OZUNA DIRECTIVE Health Care Decision (hx) 07/07/2019 AD OZUNA DIRECTIVE Health Care Decision (hx) 07/07/2019 AD OZUNA DIRECTIVE Health Care Decision (hx) 07/07/2019 AD OZUNA DIRECTIVE Health Care Decision (hx) 07/07/2019 AD OZUNA DIRECTIVE Health Care Decision (hx) 07/07/2019 AD OZUNA DIRECTIVE Health Care Decision (hx) 07/07/2019 AD OZUNA DIRECTIVE Health Care Decision (hx) 07/07/2019 AD OZUNA DIRECTIVE Health Care Decision (hx) 07/07/2019 AD OZUNA DIRECTIVE Health Care Decision (hx) 07/07/2019 AD OZUNA DIRECTIVE Care Teams Calculus Tutor Relationship Specialty Start Date End Date Debbie Cisneros MD [address] [place] [id number] PCP - General 11/16/08
--- OUTSIDE RECORDS SUMMARY | 2024-11-10 17:47 | XMS_ITS | Clinical Summary ---
Author Organization [facility] Address [address] [place] [address] Care Team Providers Care Director Of Assessing Name Role Phone Debbie Cisneros MD Primary Care Prov ider Social History Tobacco Use Types Packs/Day Years Used Date Smoking Tobacco: Never Assessed Sex and Gender Information Value Date Recorded Sex Assigned at Not on file Gender Identity Not on file Sexual Orientation Not on file Job Start Date Occupation Industry Not on file Not on file Not on file Plan of Treatment Health Maintenance Due Date Last Done Comments Hepatitis C Screening 1955 COVID-19 Vaccine (#1) 05/26/1957 Depression Screening 1968 Preventative Health Evaluation 1974 DTap / Tdap / Td (1 - Tdap) 11/24/1975 Colon Cancer Screening (Colonoscopy) 2001 Breast Cancer Screening (Mammogram) 2006 Shingrix-Zoster Vaccine (1 of 2) 2006 Fall Risk Assessment 2021 Osteoporosis Screening (DEXA Scan) 2021 Pneumococcal Vaccine (1 of 1 - PCV) 2021 Influenza Vaccine (#1) 2024 RSV Adult > 60+ Yrs or Pregn ant (1 - 1-dose 75+ series) 11/24/2031 Hepatitis B Vaccines Aged Out No long er eligible based on patient's age to complete this topic RSV Ped < 20 months Aged Out No longe r eligible based on patient's age to complete this topic Care Teams Director Of Assessing Relationship Specialty Start Date End Date Debbie Cisneros MD PCP - General Internal Medicine 04/07/18
== END 2024-11-10 14:57 | disposition home or self-care (01) ==
LOC: HO.RESP 14:56
PROVIDERS: PCP Internal Medicine; Visit Provider Hospitalist
DX: J44.89 Other specified chronic obstructive pulmonary disease (principal)
CPT/HCPCS: 94010; 94640; 94727; 94729

== ENCOUNTER → 2024-11-10 14:57 | Outpatient (BNV) | payer MEDICARE, SELFPAY | PROVIDERS: PCP Internal Medicine; Visit Provider Internal Medicine Pulmonary Disease | DX: J44.89 Other specified chronic obstructive pulmonary disease (principal) | CPT/HCPCS: 94060; 94727; 94729 ==

== ENCOUNTER 2025-07-05 09:41 | Outpatient (AMB) | payer MEDICARE, SELFPAY ==
--- NOTE | 2025-07-05 09:43 | MHC.OFFVIS ---
Vital Signs 07/05/25 09:44 Height 5 ft 3 in Weight 141 lb 1.533 oz BMI 25.0 BP 118/58 L Blood Pressure Location Lt brachial Position Sitting Pulse 70 Pulse Source Pulse Oximeter Pulse Oximetry (%) 99 Oxygen Delivery Method Room Air Intake Visit Reasons: Asthma Sand Screener Required: No Counter Supply Worker: Counter Supply Worker offered & declined Accompanied by: Self / Same As Patient Allergies No Known Allergies Allergy (Verified 07/05/25 09:46) HPI Comments Details: The patient is a 69 year woman with a known history of asthma. Apparently for the last 2 years her asthma has become significantly worse. She response typically to prednisone. She was referred to ENT for chronic sinusitis and was provided therapy. She did have allergy testing there is well. She was also referred to an transit coach operator. Additional blood work was requested for more than a year ago. She felt to have uncontrolled asthma and felt that she could not start allergy shots again since she has uncontrolled symptoms. She does state that she did allergy shots most of her childhood 1 she was very young to about 19 years of age. She did not really see any significant improvement. She would want to do allergy shot this time. Will try to maximize her respiratory therapy. The patient may be a good candidate for biologic therapy. On examination she does have wheezing rhonchi. She has a hard time with her coughing her chest congestion. She has a hard time expectorating. She has evidence of asthmatic bronchitis. Will go ahead and start her on budesonide nebs. She should also using Acapella valve and will provide her 1 with a local [employer] company. 04/18/2023 the patient is here for pulmonary follow-up visit. Overall the patient has been doing well. She did undergo the pulmonary function studies which were very reassuring, with no obstructive nor restrictive ventilatory defects. Her chest x-ray only demonstrated some minimal atelectasis at the base. And the patient also had blood work which was all reassuring. The patient is currently being evaluated for biologic therapy with her transit coach operator. We did talk about chest physical therapy regarding her chest congestion. Using the Acapella valve for chest PT will be important and mucus clearance. The patient is very sensitive to many medications and she is very concerned about potential side effects. 10/15/2023 the patient is here for a pulmonary follow-up visit. Overall the patient is doing well. Recently she was exposed to a viral syndrome and she became sick with bronchitis. The fortunately part is that she did not need any prednisone although the patient needed a brief course of antibiotics. Her symptoms are now better. She did start Fasenra which has been helping significantly. She has been on the Fasenra now for several months. She is tolerating the injection without any adverse effects. Is been working well and therefore she was able to wean off some of the nebulized therapy. However, after getting the viral syndrome in the bronchitis she has been using her nebulizers more regularly. Her chest x-ray is reassuring at least the last 1 that she had. That was from January 2023. She may have had 1 when she had bronchitis but I do not have access to that 1. At this point will continue with current respiratory regimen the patient will follow-up in the fall of 2023. 06/08/2024 the patient is here for a pulmonary follow-up visit. Overall she is doing very well. The patient his responded very well to the Fasenra injections. She has not had any significant flare-ups. Although more recently she has had some wheezing specially because of the fall and the winter when her asthma tends to be worse. She previously had budesonide although is not covered anymore with the insurance. Will send her QVAR. She can also use her nebulizer and also the albuterol puffer to use as needed. No imaging studies to review. We again looked at her PFTs which are actually excellent. Was on a copy to her transit coach operator. At this point the patient will follow-up in a year's time if she develops any worsening respiratory symptoms she will call for an earlier chest. 07/05/2025 the patient is here for pulmonary follow-up visit. Overall the patient has been doing okay. She is continue her nebulized therapy. In addition to that she continues with the biologics therapy. 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 Therefore, we did talk about other options including Alvesco is a good option to minimize voice irritations specially if she uses it with a spacer. In addition to that she is still having frequent asthma exacerbations. We did talk about maximizing her respiratory capacity if she was able to do so by taking a combination Lama Laba inhaler in conjunction with the inhaled corticosteroid. She can always use her nebulizer as needed. Will see if this is cost effective for her because these inhalers a very expensive for her at this time. She continues on the Fasenra. The other options to consider other alternatives biologics such as Dupixent or Tezspire. She does follow closely with Allergy and immunology and she can have that discussion further with them. Overall she is feeling better but she would like to try to minimize on the frequency of the exacerbations. [facility] Medical History (Updated 10/15/23 @ 11:28 by Estiven Silvestre MD) Asthma-COPD overlap syndrome Chronic bronchitis Asthma Social History Patient Tobacco Use Status: Never used Tobacco Review of Systems Const Denies fatigue and Denies fever(s) Eyes Denies exophthalmos ENT Reports nasal congestion, Reports nasal discharge and Reports post nasal drip Card Denies chest pain and Denies dyspnea on exertion Resp Denies chest congestion, Reports cough, Denies dyspnea on exertion and Reports wheezing GI Reports no additional complaints Musc Reports no additional complaints Skin/Breast Denies rash Neuro Reports no additional complaints Endo Denies fatigue Joshua/Lymph Denies easy bruising Aller/Immun Reports wheezing Physical Exam Vital Signs: Last Vital Signs Pulse 70 07/05/25 09:44 BP 118/58 L 07/05/25 09:44 Pulse Ox 99 07/05/25 09:44 Oxygen Delivery Method Room Air 07/05/25 09:44 BMI result Body Mass Index 25.0 Const General: comfortable HEENT Head: Yes normocephalic Neck Neck: Yes supple Chest Chest palpation & inspection: normal inspection of the chest Resp Effort & Inspection: normal respiratory effort and No prolonged expiratory phase Auscultation: no wheezes and diminished lung sounds Cardio Rate: regular rate Rhythm: regular rhythm Heart sounds: S1 normal heart sound present and S2 normal heart sound present GI Palpation (GI): Soft to palpation Skin General skin exam: no rashes or lesions noted Extrem General: Yes no clubbing, cyanosis or edema Assessment & Plan Assessment & Plan (1) Chronic bronchitis: Code(s): J42 - Unspecified chronic bronchitis Category: Medical Qualifiers: Chronic bronchitis type: simple Qualified Code(s): J41.0 - Simple chronic bronchitis (2) Asthma: Code(s): J45.909 - Unspecified asthma, uncomplicated Category: Medical Qualifiers: Asthma complication type: uncomplicated Asthma persistence: persistent Asthma severity: severe Qualified Code(s): J45.50 - Severe persistent asthma, uncomplicated Plan stop budesonide BID via nebulizer start Alvesco start Bevespi Albuterol BID nebulizer CPT with acapella valve continue Fasenra continue singulair F/U 12 months Medications: New ciclesonide 160 mcg/actuation (Alvesco) 1 puff inhalation BID 6.1 grams 11RF 30 days glycopyrrolate-formoterol 9-4.8 mcg (Bevespi Aerosphere) 2 puffs inhalation Q12H 10.7 grams 11RF 30 days Coding Level of Care Code Est Pt Level 4 (95634) Diagnoses Simple chronic bronchitis J41.0 Chronic bronchitis type: simple Severe persistent asthma without complication J45.50 Asthma complication type: uncomplicated Asthma persistence: persistent Asthma severity: severe Time Spent (min) 17
[2025-07-05 09:44] VITALS: BP 118/58; PULSE 70; O2SAT 99; BMI 25.0
== END 2025-07-05 10:18 | disposition home or self-care (01) ==
LOC: HO.HPS 09:42
PROVIDERS: PCP Internal Medicine; Visit Provider Hospitalist
DX: J41.0 Simple chronic bronchitis (principal); J45.50 Severe persistent asthma, uncomplicated
CPT/HCPCS: 99214

== ENCOUNTER → 2025-07-05 09:41 | Outpatient (BNVA) | payer MEDICARE, SELFPAY | PROVIDERS: PCP Internal Medicine; Visit Provider Hospitalist | DX: J41.0 Simple chronic bronchitis (principal); J45.40 Moderate persistent asthma, uncomplicated | CPT/HCPCS: 99212 ==